=== PATIENT | male | born 1965 | race Caucasian/White ===

== ENCOUNTER 2017-03-02 11:09 | Inpatient (IN) | payer OTHER ==
[2017-03-02] VITALS (8 sets, daily range): BP systolic 120–139; BP diastolic 61–84; PULSE 90–104; RESP 18–23; TEMP 97.5–97.9; O2SAT 94–98
[2017-03-02] MEDS ORDERED: IOHEXOL 350 MG/ML 10 ML VIAL (for RAD DIAG) IVCONTRAST ONE (11:10)
[2017-03-02] MEDS ORDERED: DIPHTH/TETANUS/ACEL PERTUSSIS (BOOSTER) 0.5 ML VIAL/PFS IM ONE (11:14)
[2017-03-02] MEDS ORDERED: ceFAZolin 2 GM PREMIX 50 ML ONE (11:14)
[2017-03-02 11:36] LABS: AUTOMATED NEUTROPHIL # 5.9 TH/MM3 (1.8-7.7); BASOPHIL # 0.1 TH/MM3 (0-0.2); BASOPHIL % 0.9 % (0.0-2.0); EOSINOPHIL # 0.1 TH/MM3 (0-0.4); EOSINOPHIL % 0.7 % (0.0-4.0); HEMATOCRIT 42.1 % (39.0-51.0); HEMOGLOBIN 14.6 GM/DL (13.0-17.0); LYMPH % 41.1 % (9.0-44.0); LYMPHOCYTE # 4.8 TH/MM3 (1.0-4.8); MEAN CELL VOLUME 103.2 FL (80.0-100.0); MEAN CORPUSCULAR HEMOGLOBIN 35.7 PG (27.0-34.0); MEAN CORPUSCULAR HGB CONC 34.5 % (32.0-36.0); MEAN PLATELET VOLUME 7.8 FL (7.0-11.0); MONO % 6.8 % (0.0-8.0); MONOCYTE # 0.8 TH/MM3 (0-0.9); NEUT % 50.5 % (16.0-70.0); PLATELET COUNT 267 TH/MM3 (150-450); RED BLOOD COUNT 4.08 MIL/MM3 (4.50-5.90); RED CELL DISTRIBUTION WIDTH 13.3 % (11.6-17.2); WHITE BLOOD COUNT 11.8 TH/MM3 (4.0-11.0)
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
[2017-03-02] MEDS ORDERED: ETOMIDATE 40 MG/20 ML VIAL ONE (11:48)
[2017-03-02 11:49] LABS: PROTHROMBIN TIME - PATIENT 10.3 SEC (9.8-11.6)
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
--- NOTE | 2017-03-02 12:21 | RADRPT ---
EXAM DATE/TIME: 03/02/2017 12:03 [facility] COMPARISON: CHEST SINGLE AP, March 02, 2017, 11:12. INDICATIONS : Post chest tube. Evaluate for pneumothorax MEDICAL HISTORY : None. SURGICAL HISTORY : None. ENCOUNTER: Subsequent ACUITY: 1 day PAIN SCORE: 8/10 LOCATION: Left chest FINDINGS: Interval placement of a left chest drainage tube with the tip projected in the upper medial left ches t. No separation of visceral parietal pleura on this supine view. Prominent amount of subcutaneous em physema about the lateral left chest wall. Multiple left rib fractures. The patient is mildly rotated towards the right and, when taking into account the positioning, no significant mediastinal shift. B oth hemidiaphragms are well delineated. CONCLUSION: Interval placement of left chest drainage tube, in good position. No pneumothorax seen on this supine view. Tho Courtney MD on March 02, 2017 at 12:18 Board Certified Radiologist. This report was verified electronically.
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
[2017-03-02] MEDS ORDERED: MAGNESIUM HYDROXIDE SUSP 30 ML CUP PO PRN (13:00)
[2017-03-02] MEDS ORDERED: NALOXONE HCL 0.4 MG/ML AMP IV PUSH PRN (13:00)
[2017-03-02] MEDS ORDERED: HYDROmorphone HCL PCA 6 MG/30 ML IV SCH (13:00)
[2017-03-02] MEDS ORDERED: BISACODYL 10 MG SUPP RECTAL PRN (13:00)
[2017-03-02] MEDS ORDERED: LACTULOSE SYRUP 20 GM/30 ML CUP PO PRN (13:00)
[2017-03-02] MEDS ORDERED: MISCELLANEOUS NURSING INFORMATION XX SCH (13:00)
[2017-03-02] MEDS ORDERED: diphenhydrAMINE HCL 25 MG CAP PO PRN (13:00)
[2017-03-02] MEDS ORDERED: SENNOSIDES 8.6 MG TAB PO PRN (13:00)
[2017-03-02] MEDS ORDERED: CHLORHEXIDINE GLUCONATE 2 % 1 PACK (2 CLOTHS) TOP PRN (13:00)
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
[2017-03-02] MEDS: METHOCARBAMOL 500 MG TAB PO SCH ×2 (13:49→22:30)
[2017-03-02] MEDS: SODIUM CHLOR 0.9% 1000 ML INJ 1,000 ML IV SCH (13:50)
[2017-03-02] MEDS: PCA - TOTAL MG DILAUDID DELIVERED PER SHIFT OTHER SCH ×2 (14:00→22:00)
[2017-03-02] MEDS: REMOVE OLD PATCH T-DERMAL SCH ×2 (16:00→21:00)
[2017-03-02] MEDS: LIDOCAINE HCL 5% PATCH T-DERMAL SCH (17:11)
[2017-03-02] MEDS: ONDANSETRON HCL 4 MG/2 ML VIAL IV PUSH PRN ×2 (17:12→23:45)
[2017-03-02] MEDS: DOCUSATE SODIUM 50 MG/SENNA 8.6 MG TAB PO SCH (22:30)
[2017-03-02] MEDS: FAMOTIDINE 20 MG/2 ML VIAL IV PUSH SCH (22:31)
[2017-03-03] VITALS (9 sets, daily range): BP systolic 107–147; BP diastolic 67–83; PULSE 66–134; RESP 13–22; TEMP 98–98.5; O2SAT 93–97
[2017-03-03] MEDS: CHLORHEXIDINE GLUCONATE 2 % 1 PACK (2 CLOTHS) TOP SCH (01:10)
[2017-03-03] MEDS: SODIUM CHLOR 0.9% 1000 ML INJ 1,000 ML IV SCH ×2 (01:10→12:28)
[2017-03-03] MEDS: PCA - TOTAL MG DILAUDID DELIVERED PER SHIFT OTHER SCH ×2 (01:11→05:29)
[2017-03-03 05:26] LABS: AUTOMATED NEUTROPHIL # 7.2 TH/MM3 (1.8-7.7); BASOPHIL % 0.3 % (0.0-2.0); EOSINOPHIL % 0.1 % (0.0-4.0); HEMATOCRIT 32.8 % (39.0-51.0); HEMOGLOBIN 11.6 GM/DL (13.0-17.0); LYMPHOCYTE # 1.3 TH/MM3 (1.0-4.8); MEAN CELL VOLUME 103.5 FL (80.0-100.0); MEAN CORPUSCULAR HEMOGLOBIN 36.7 PG (27.0-34.0); MEAN CORPUSCULAR HGB CONC 35.4 % (32.0-36.0); MEAN PLATELET VOLUME 8.1 FL (7.0-11.0); MONO % 12.4 % (0.0-8.0); MONOCYTE # 1.2 TH/MM3 (0-0.9); NEUT % 74.2 % (16.0-70.0); PLATELET COUNT 225 TH/MM3 (150-450); RED BLOOD COUNT 3.17 MIL/MM3 (4.50-5.90); WHITE BLOOD COUNT 9.7 TH/MM3 (4.0-11.0)
[2017-03-03] MEDS: METHOCARBAMOL 500 MG TAB PO SCH ×3 (05:30→20:42)
[2017-03-03 05:51] LABS: BICARBONATE 24.2 MEQ/L (21.0-32.0); CALCIUM 7.6 MG/DL (8.5-10.1); CREATININE 0.69 MG/DL (0.60-1.30)
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
[2017-03-03] MEDS: REMOVE OLD PATCH T-DERMAL SCH ×2 (09:00→20:46)
[2017-03-03] MEDS: LIDOCAINE HCL 5% PATCH T-DERMAL SCH (09:16)
[2017-03-03] MEDS: FAMOTIDINE 20 MG/2 ML VIAL IV PUSH SCH (09:16)
[2017-03-03] MEDS: DOCUSATE SODIUM 50 MG/SENNA 8.6 MG TAB PO SCH ×2 (09:16→20:42)
[2017-03-03] MEDS ORDERED: chlordiazePOXIDE 25 MG CAP PO PRN (10:15)
[2017-03-03] MEDS ORDERED: MORPHINE SULFATE 2 MG/ML INJ IV PUSH PRN (10:15)
[2017-03-03] MEDS: BACITRACIN TOP OINT 15 GM TUBE TOPICAL SCH ×2 (11:00→21:00)
[2017-03-03] MEDS: MULTIVITAMIN INJ 10 ML, THIAMINE INJ 100 MG, FOLIC ACID INJ 1 MG in SODIUM CHLORID 0.9%... IV SCH (12:00)
[2017-03-03] MEDS: ACETAMINOPHEN 1000 MG/100 ML 100 ML IV SCH ×3 (12:27→20:42)
[2017-03-03] MEDS: KETOROLAC TROMETHAMINE 30 MG/ML (IVP) VIAL IV PUSH SCH ×3 (12:28→22:59)
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
[2017-03-03] MEDS: MAGNESIUM HYDROXIDE SUSP 30 ML CUP PO SCH ×2 (13:00→20:42)
[2017-03-03] MEDS: FAMOTIDINE 20 MG TAB PO SCH (20:42)
[2017-03-04] VITALS (13 sets, daily range): BP systolic 99–151; BP diastolic 68–90; PULSE 88–113; RESP 17–20; TEMP 97.1–98.7; O2SAT 91–100
[2017-03-04] MEDS: SODIUM CHLOR 0.9% 1000 ML INJ 1,000 ML IV SCH ×2 (03:00→13:40)
[2017-03-04] MEDS: CHLORHEXIDINE GLUCONATE 2 % 1 PACK (2 CLOTHS) TOP SCH (04:00)
[2017-03-04] MEDS: ACETAMINOPHEN 1000 MG/100 ML 100 ML IV SCH ×3 (04:54→16:00)
[2017-03-04] MEDS: KETOROLAC TROMETHAMINE 30 MG/ML (IVP) VIAL IV PUSH SCH ×4 (04:54→23:28)
[2017-03-04] MEDS: METHOCARBAMOL 500 MG TAB PO SCH ×3 (04:55→20:14)
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
[2017-03-04 08:26] LABS: AUTOMATED NEUTROPHIL # 3.3 TH/MM3 (1.8-7.7); BASOPHIL % 0.4 % (0.0-2.0); EOSINOPHIL % 0.4 % (0.0-4.0); LYMPH % 19.5 % (9.0-44.0); MEAN CELL VOLUME 102.9 FL (80.0-100.0); MEAN CORPUSCULAR HEMOGLOBIN 36.6 PG (27.0-34.0); MEAN CORPUSCULAR HGB CONC 35.6 % (32.0-36.0); MEAN PLATELET VOLUME 7.7 FL (7.0-11.0); MONO % 12.8 % (0.0-8.0); MONOCYTE # 0.6 TH/MM3 (0-0.9); NEUT % 66.9 % (16.0-70.0); PLATELET COUNT 103 TH/MM3 (150-450); RED CELL DISTRIBUTION WIDTH 12.8 % (11.6-17.2)
[2017-03-04 08:34] LABS: HEMOGLOBIN 7.3 GM/DL (13.0-17.0)
[2017-03-04 08:35] LABS: HEMATOCRIT 20.5 % (39.0-51.0)
[2017-03-04] MEDS: FAMOTIDINE 20 MG TAB PO SCH ×2 (08:41→20:14)
[2017-03-04] MEDS: BACITRACIN TOP OINT 15 GM TUBE TOPICAL SCH ×2 (08:42→21:00)
[2017-03-04] MEDS: LIDOCAINE HCL 5% PATCH T-DERMAL SCH (08:45)
[2017-03-04 08:48] LABS: ALBUMIN 2.9 GM/DL (3.4-5.0); ALT (GPT) 71 U/L (12-78); AST (GOT) 46 U/L (15-37); BICARBONATE 28.4 MEQ/L (21.0-32.0); BLOOD UREA NITROGEN 16 MG/DL (7-18); CALCIUM 7.7 MG/DL (8.5-10.1); CHLORIDE 103 MEQ/L (98-107); CREATININE 0.67 MG/DL (0.60-1.30); GLOMERULAR FILTRATION RATE 126 ML/MIN (>89); GLUCOSE,RANDOM 106 MG/DL (74-106); SODIUM (NA) 136 MEQ/L (136-145)
[2017-03-04 08:49] LABS: ALKALINE PHOSPHATASE 39 U/L (45-117); TOTAL BILIRUBIN ADULT 0.6 MG/DL (0.2-1.0); TOTAL PROTEIN 5.7 GM/DL (6.4-8.2)
[2017-03-04] MEDS: DOCUSATE SODIUM 50 MG/SENNA 8.6 MG TAB PO SCH ×2 (09:00→20:13)
[2017-03-04] MEDS: REMOVE OLD PATCH T-DERMAL SCH ×2 (09:00→21:00)
[2017-03-04] MEDS: LACTULOSE SYRUP 20 GM/30 ML CUP PO SCH (09:00)
[2017-03-04] MEDS: MAGNESIUM HYDROXIDE SUSP 30 ML CUP PO SCH ×2 (09:00→20:14)
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
[2017-03-04] MEDS ORDERED: SODIUM CHLOR 0.9% 250 ML INJ 250 ML IV ONE (10:00)
[2017-03-04] MEDS: MULTIVITAMIN INJ 10 ML, THIAMINE INJ 100 MG, FOLIC ACID INJ 1 MG in SODIUM CHLORID 0.9%... IV SCH (12:00)
[2017-03-04] MEDS ORDERED: MAGN30S PO (12:56)
[2017-03-04] MEDS ORDERED: PERI PO (12:56)
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
[2017-03-04] MEDS ORDERED: WALKER WHEELS/F1 MIS (12:59)
[2017-03-04] MEDS ORDERED: IOHEXOL 350 MG/ML 10 ML VIAL (for RAD DIAG) IVCONTRAST ONE (22:28)
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
[2017-03-04 23:12] LABS: HEMATOCRIT 28.5 % (39.0-51.0); HEMOGLOBIN 10.5 GM/DL (13.0-17.0)
[2017-03-05] VITALS (8 sets, daily range): BP systolic 99–142; BP diastolic 69–87; PULSE 70–106; RESP 16–18; TEMP 96.3–97.9; O2SAT 95–100
[2017-03-05] MEDS: SODIUM CHLOR 0.9% 1000 ML INJ 1,000 ML IV SCH ×2 (01:35→13:30)
[2017-03-05] MEDS: METHOCARBAMOL 500 MG TAB PO SCH ×3 (05:46→21:05)
[2017-03-05 05:49] LABS: AUTOMATED NEUTROPHIL # 3.6 TH/MM3 (1.8-7.7); BASOPHIL % 0.5 % (0.0-2.0); EOSINOPHIL % 0.7 % (0.0-4.0); HEMATOCRIT 27.7 % (39.0-51.0); HEMOGLOBIN 10.1 GM/DL (13.0-17.0); LYMPH % 19.5 % (9.0-44.0); MEAN CELL VOLUME 95.6 FL (80.0-100.0); MEAN PLATELET VOLUME 7.9 FL (7.0-11.0); MONOCYTE # 0.5 TH/MM3 (0-0.9); NEUT % 69.3 % (16.0-70.0); PLATELET COUNT 120 TH/MM3 (150-450); WHITE BLOOD COUNT 5.2 TH/MM3 (4.0-11.0)
[2017-03-05] MEDS: KETOROLAC TROMETHAMINE 30 MG/ML (IVP) VIAL IV PUSH SCH ×3 (05:50→17:23)
[2017-03-05 05:52] LABS: MEAN CORPUSCULAR HGB CONC 36.6 % (32.0-36.0)
[2017-03-05 06:14] LABS: ALBUMIN 3.2 GM/DL (3.4-5.0); AST (GOT) 67 U/L (15-37); BICARBONATE 25.7 MEQ/L (21.0-32.0); BLOOD UREA NITROGEN 12 MG/DL (7-18); CALCIUM 7.8 MG/DL (8.5-10.1); CHLORIDE 100 MEQ/L (98-107); CREATININE 0.74 MG/DL (0.60-1.30); GLOMERULAR FILTRATION RATE 112 ML/MIN (>89); GLUCOSE,RANDOM 104 MG/DL (74-106); SODIUM (NA) 134 MEQ/L (136-145)
[2017-03-05 06:16] LABS: ALT (GPT) 79 U/L (12-78)
[2017-03-05 06:18] LABS: ALKALINE PHOSPHATASE 51 U/L (45-117); TOTAL BILIRUBIN ADULT 1.1 MG/DL (0.2-1.0); TOTAL PROTEIN 6.5 GM/DL (6.4-8.2)
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
[2017-03-05] MEDS: DOCUSATE SODIUM 50 MG/SENNA 8.6 MG TAB PO SCH ×2 (08:51→21:04)
[2017-03-05] MEDS: FAMOTIDINE 20 MG TAB PO SCH ×2 (08:51→21:04)
[2017-03-05] MEDS: MAGNESIUM HYDROXIDE SUSP 30 ML CUP PO SCH ×2 (08:51→21:04)
[2017-03-05] MEDS: LIDOCAINE HCL 5% PATCH T-DERMAL SCH (08:52)
[2017-03-05] MEDS: REMOVE OLD PATCH T-DERMAL SCH ×2 (08:52→21:00)
[2017-03-05] MEDS: BACITRACIN TOP OINT 15 GM TUBE TOPICAL SCH ×2 (08:53→21:00)
[2017-03-05] MEDS: LACTULOSE SYRUP 20 GM/30 ML CUP PO SCH (08:53)
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
[2017-03-06] VITALS (9 sets, daily range): BP systolic 116–148; BP diastolic 71–89; PULSE 79–110; RESP 16–18; TEMP 96.2–98.4; O2SAT 95–100
[2017-03-06] MEDS: SODIUM CHLOR 0.9% 1000 ML INJ 1,000 ML IV SCH (00:28)
[2017-03-06] MEDS: KETOROLAC TROMETHAMINE 30 MG/ML (IVP) VIAL IV PUSH SCH ×4 (05:28→17:44)
[2017-03-06] MEDS: METHOCARBAMOL 500 MG TAB PO SCH ×3 (05:29→21:45)
[2017-03-06 06:21] LABS: AUTOMATED NEUTROPHIL # 2.9 TH/MM3 (1.8-7.7); BASOPHIL % 0.6 % (0.0-2.0); EOSINOPHIL # 0.2 TH/MM3 (0-0.4); EOSINOPHIL % 3.3 % (0.0-4.0); HEMOGLOBIN 8.2 GM/DL (13.0-17.0); LYMPH % 27.3 % (9.0-44.0); LYMPHOCYTE # 1.4 TH/MM3 (1.0-4.8); MEAN CELL VOLUME 96.6 FL (80.0-100.0); MEAN CORPUSCULAR HEMOGLOBIN 34.5 PG (27.0-34.0); MEAN CORPUSCULAR HGB CONC 35.8 % (32.0-36.0); MEAN PLATELET VOLUME 7.9 FL (7.0-11.0); MONO % 12.8 % (0.0-8.0); MONOCYTE # 0.7 TH/MM3 (0-0.9); PLATELET COUNT 132 TH/MM3 (150-450); RED BLOOD COUNT 2.38 MIL/MM3 (4.50-5.90); WHITE BLOOD COUNT 5.2 TH/MM3 (4.0-11.0)
[2017-03-06 06:44] LABS: ALBUMIN 2.7 GM/DL (3.4-5.0); AST (GOT) 69 U/L (15-37); BICARBONATE 27.9 MEQ/L (21.0-32.0); BLOOD UREA NITROGEN 16 MG/DL (7-18); CALCIUM 8.1 MG/DL (8.5-10.1); CHLORIDE 99 MEQ/L (98-107); CREATININE 0.76 MG/DL (0.60-1.30); GLOMERULAR FILTRATION RATE 109 ML/MIN (>89); GLUCOSE,RANDOM 95 MG/DL (74-106); SODIUM (NA) 134 MEQ/L (136-145)
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
[2017-03-06 06:49] LABS: ALKALINE PHOSPHATASE 51 U/L (45-117); ALT (GPT) 76 U/L (12-78); TOTAL BILIRUBIN ADULT 0.9 MG/DL (0.2-1.0); TOTAL PROTEIN 5.6 GM/DL (6.4-8.2)
[2017-03-06] MEDS: MAGNESIUM HYDROXIDE SUSP 30 ML CUP PO SCH ×2 (08:36→21:45)
[2017-03-06] MEDS: DOCUSATE SODIUM 50 MG/SENNA 8.6 MG TAB PO SCH ×2 (08:36→21:46)
[2017-03-06] MEDS: LACTULOSE SYRUP 20 GM/30 ML CUP PO SCH (08:36)
[2017-03-06] MEDS: FAMOTIDINE 20 MG TAB PO SCH ×2 (08:38→21:45)
[2017-03-06] MEDS: REMOVE OLD PATCH T-DERMAL SCH ×2 (08:38→21:46)
[2017-03-06] MEDS: LIDOCAINE HCL 5% PATCH T-DERMAL SCH (08:38)
[2017-03-06] MEDS: BACITRACIN TOP OINT 15 GM TUBE TOPICAL SCH ×2 (08:39→21:46)
[2017-03-06] MEDS ORDERED: LORazepam 2 MG/ML VIAL ONE (11:45)
[2017-03-06] MEDS ORDERED: fentaNYL CITRATE 250 MCG/5 ML AMP ONE (11:45)
[2017-03-06] MEDS ORDERED: ceFAZolin 2 GM PREMIX 50 ML ONE (12:19)
--- NOTE | 2017-03-06 12:35 | PD.RAD ---
Post Procedure Progress Note Pre Procedure Diagnosis: (1) Splenic laceration Post Procedure Diagnosis: (1) Splenic laceration Procedure Date: Mar 06, 2017 Supervising Radiologist: Merlin Lemus Estimated blood loss: 3cc Anesthesia: Local, Conscious Sedation Plan of Activity Patient to Unit: Critical Care Patient Condition: Good Additional Comments: Pt. is post splenic angiogram. 2 small areas of capsular hemorrhage and small pseudoaneurism evident in the lower pole of the spleen. Subselective embolization with gelfoam completed without difficulty. complete occlusion of the areas of hemorrhage/pseudoaneurism. Full dictated report to follow See PACS Report for procedural detail/treatment Merlin Lemus MD Mar 06, 2017 12:35
[2017-03-06] MEDS ORDERED: IODIXANOL 320 MG/ML 50 ML VIAL (for RAD SPEC) I-ARTERIAL ONE (13:24)
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
[2017-03-07] MEDS: KETOROLAC TROMETHAMINE 30 MG/ML (IVP) VIAL IV PUSH SCH ×3 (00:10→12:00)
[2017-03-07 00:15] VITALS: BP 138/86; PULSE 102; RESP 18; TEMP 97.5; O2SAT 98
[2017-03-07 04:07] VITALS: BP 147/97; PULSE 90; RESP 18; TEMP 97.8; O2SAT 96
[2017-03-07] MEDS: METHOCARBAMOL 500 MG TAB PO SCH ×2 (04:30→13:03)
[2017-03-07 05:47] LABS: HEMATOCRIT 27.5 % (39.0-51.0); HEMOGLOBIN 9.9 GM/DL (13.0-17.0)
[2017-03-07 08:00] VITALS: BP 131/88; PULSE 86; RESP 18; TEMP 97; O2SAT 97
[2017-03-07] MEDS: LACTULOSE SYRUP 20 GM/30 ML CUP PO SCH (08:38)
[2017-03-07] MEDS: MAGNESIUM HYDROXIDE SUSP 30 ML CUP PO SCH (08:38)
[2017-03-07] MEDS: DOCUSATE SODIUM 50 MG/SENNA 8.6 MG TAB PO SCH (08:39)
[2017-03-07] MEDS: FAMOTIDINE 20 MG TAB PO SCH (08:39)
[2017-03-07] MEDS: REMOVE OLD PATCH T-DERMAL SCH (08:40)
[2017-03-07] MEDS: LIDOCAINE HCL 5% PATCH T-DERMAL SCH (08:40)
[2017-03-07] MEDS: BACITRACIN TOP OINT 15 GM TUBE TOPICAL SCH (08:40)
[2017-03-07] MEDS ORDERED: NORC5TAB PO (11:37)
[2017-03-07 12:00] VITALS: BP 143/87; PULSE 103; RESP 18; TEMP 97.7; O2SAT 99
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
[2017-03-07 16:04] VITALS: RESP 16
== END 2017-03-07 17:23 | disposition home health service (06) | DRG 958 ==
LOC: NEPI 11:09 → EDBD 12:06 → NEDA 12:06 → N03B 12:32 → N06A 03-03 14:50
PROVIDERS: ADMIT Surgery Trauma Surgery; ATTEND Surgery Trauma Surgery
PROC: 0HQ0XZZ Repair Scalp Skin, External Approach (ICD-10-PCS; 2017-03-02)
PROC: 0W9B30Z Drainage of Left Pleural Cavity with Drainage Device, Percutaneous Approach (ICD-10-PCS; 2017-03-02)
PROC: 30233N1 Transfusion of Nonautologous Red Blood Cells into Peripheral Vein, Percutaneous Approach (ICD-10-PCS; 2017-03-04)
PROC: 04L43DZ Occlusion of Splenic Artery with Intraluminal Device, Percutaneous Approach (ICD-10-PCS; principal; 2017-03-06)
DX: S36.039A Unspecified laceration of spleen, initial encounter (principal); S27.2XXA Traumatic hemopneumothorax, initial encounter; S22.42XA Multiple fractures of ribs, left side, initial encounter for closed fracture; S27.321A Contusion of lung, unilateral, initial encounter; I95.9 Hypotension, unspecified; I72.8 Aneurysm of other specified arteries; S06.0X1A Concussion with loss of consciousness of 30 minutes or less, initial encounter; S01.01XA Laceration without foreign body of scalp, initial encounter; D50.0 Iron deficiency anemia secondary to blood loss (chronic); R40.2411 Glasgow coma scale score 13-15, in the field [EMT or ambulance]; V28.4XXA Motorcycle driver injured in noncollision transport accident in traffic accident, initial encounter; Y92.410 Unspecified street and highway as the place of occurrence of the external cause
CPT/HCPCS: 32551; 36247; 36248; 36430; 37243; 70450; 70486; 71010; 71045; 71260; 72125; 72170; 74177; 75726; 75774; 76937; 80048; 80053; 82435; 82565; 82947; 84132; 84295; 84520; 85014; 85018; 85025; 85610; 85730; 86850; 86900; 86901; 86920; 90471; 90715; 94150; 94640; 94667; 94668; 96374; 96375; 99152; 99153; 99291; C1760; C1769; C1887; C1894; G0269; G0390; J0131; J0690; J1170; J1885; J2060; J2270; J2405; J3010; J7030; J7050; P9016; Q9967